=== PATIENT | female | born 1985 | race Hispanic/Latino ===

== ENCOUNTER 2016-06-08 16:27 | Emergency (ER) | payer OTHER ==
[~2016-06-08] VITALS: Ht 157.5 cm; Wt 97.5 kg
[~2016-06-08 16:27] MED LIST: HYDROCODONE/ACE1 TA1 PO; PREDNICOT20 MG PO; SLOW FE45 MG PO
--- NOTE | 2016-06-08 19:28 | ED INFLUENZA/URI COMPLAINT ---
History of Present Illness General Chief Complaint: Upper Respiratory Sx/Fever Stated Complaint: URI Source: patient Exam Limitations: no limitations Vital Signs & Intake/Output Vital Signs & Intake/Output Vital Signs Date Time Temp Pulse Resp B/P Pulse O2 O2 Flow FiO2 Ox Delivery Rate 06/08 2114 98.6 95 14 124/79 100 Room Air 06/087 99 Room Air 06/084 98.5 111 20 117/69 100 Room Air 06/08 1638 98.8 120 16 124/83 95 Room Air Allergies Coded Allergies: MDX - Fish Oil (FISH OIL) (Mild, RASH 07/23/13) Reconcile Medications Benzonatate (Tessalon Perle) 100 MG CAPSULE 1 CAP PO TID PRN cough HYDROCODONE/ACETAMINOPHEN (Hydrocodon-Acetaminophen 5-325) 1 TAB TAB 1-2 TAB PO Q6P PRN PAIN Prednisone (Prednicot) 20 MG TAB 2 TAB PO DAILY ALLERGIC REACTION Triage Note: PT STATES SHE HAS BEEN FEELING SICK SINCE MONDAY. PT HAS HAD BODY ACHES COUGHING AND SNEEZING AND LOW GRADE FEVER. Triage Nurses Notes Reviewed? yes Onset: Gradual Duration: day(s): (5) Timing: remote history Severity: moderate Severity Numbers: 6 Prior Episodes/Possible Cause: occassional episodes No Modifying Factors: none : No Patient currently breastfeeds: No HPI: Patient is a 31-year-old female presenting to the emergency Department chief complaint of malais, body aches, productive cough of yellow sputum. Tactile fevers at home. Her kids were sick with similar symptoms. No one Diagnosed with the flu. She did get her flu vaccine this year. Denies any nausea or vomiting or abdominal pain. No chest pain palpitations or shortness of breath. No recent travel. Denies taking anything [id number] besides Tylenol to help with symptoms. (DOROTHEA GODWIN,CHAPARRITA) Past History Travel History Traveled to [place] past 21 day No Medical History Any Pertinent Medical History? see below for history Neurological: NONE EENT: NONE Cardiovascular: NONE Respiratory: NONE Gastrointestinal: NONE Hepatic: NONE Renal: NONE Musculoskeletal: NONE Psychiatric: NONE Endocrine: NONE Blood Disorders: NONE Cancer(s): NONE Tetanus Vaccine: 08/03/12 Surgical History Surgical History: non-contributory Psychosocial History What is your primary language Greenlandic Tobacco Use: Never used ETOH Use: denies use Illicit Drug Use: denies illicit drug use Family History Hx Contributory? No (CHAPARRITA LEIVA) Review of Systems Review of Systems Constitutional: Reports: fever, malaise. Comments Review of systems: See HPI, All other systems negative. Constitutional, no weight loss HEENT: No visual changes Cardiovascular: No chest pain ,palpitation , orthopnea or ankle swelling Skin, no jaundice no rashes Respiratory: No dyspnea or hemoptysis GI: No nausea no vomiting : No dysuria No hematuria Muscle skeletal: no back pain, no neck pain, Neurologic: No numbness no confusion Psych: No stress anxiety or depression,. Heme/endocrine: No bruising no bleeding no polyuria or polydipsia Immunology: No splenectomy or history of AIDS (CHAPARRITA LEIVA) Physical Exam Physical Exam General Appearance: well developed/nourished, no apparent distress, alert, awake , comfortable Ears, Nose, Throat: nasal congestion Comments: Well-developed well-nourished person in no acute distress HEENT: . Pupils equally round and reactive to light and accommodation. Nose is atraumatic. External auditory canal and Tympanic membranes clear. Pharynx normal. No swelling or edema. Neck: Supple, no lymphadenopathy, normal range of motion without pain or tenderness Back: Nontender, no CVA tenderness. Full range of motion Cardiovascular: slightly tachy rate and regular rhythms no murmurs rubs or gallops, normal JVP Respiratory: Chest nontender. No respiratory distress.breath sounds clear to auscultation bilaterally. dry reactive cough. Neuro: Alert oriented x3 Skin: No appreciable rash on exposed skin, skin is warm and dry. Psych: Mood and affect is normal, memory and judgment is normal. Core Measures Severe Sepsis Present: No Septic Shock Present: No (CHAPARRITA LEIVA) Progress Differential Diagnosis: influenza, pneumonia, pharyngitis, sinusitis Plan of Care: Orders Procedure Date/time Status EKG 06/08 2022 Active RAPID VIRAL INFLUENZA A 06/08 1926 Complete Microbiology 06/08 2006 NASOPHARYN: Influenza Virus A & B Rapid Smear - COMP Initial ED EKG: sinus tachycardia at 106 bpm Comments: EKG is sinus tachycardia. 106 bpm. Patient feeling better after Decadron. Patient will be treated symptomatically for viral syndrome. Educated on increasing fluids. Patient nontoxic. (CHAPARRITA LEIVA) Departure Departure Time of Disposition: 2031 Disposition: HOME OR SELF CARE Condition: Stable Clinical Impression Primary Impression: Viral syndrome Referrals: PATIENT HAS NO PRIMARY CARE DR (PCP/Family) Additional Instructions: Follow-up with your primary care physician call to make an appointment. Increase fluids. Take cough medication as prescribed. Alternate Motrin and Tylenol [id number] to help with aches and pains. Return for worsening symptoms or concerns. Departure Forms: Customer Survey General Discharge Information Prescriptions: Current Visit Scripts Benzonatate (Tessalon Perle) 1 CAP PO TID PRN cough #30 CAP (CHAPARRITA LEIVA) PA/CRAWLER TRACTOR OPERATOR Co-Sign Statement Statement: ED Attending supervision documentation- [] I saw and evaluated the patient. I have also reviewed all the pertinent lab results and diagnostic results. I agree with the findings and the plan of care as documented in the PA's/CRAWLER TRACTOR OPERATOR's documentation. [X] I have reviewed the ED Record and agree with the PA's/CRAWLER TRACTOR OPERATOR's documentation. [] Additions or exceptions (if any) to the PAs/CRAWLER TRACTOR OPERATOR's note and plan are summarized below: [] (RUDY JAY,LISA Zhang)
[2016-06-08] MEDS ORDERED: TESSALON PERLE100 M1 PO (20:33)
[2016-06-08 21:15] VITALS: BP 124/79
== END 2016-06-08 22:22 ==
LOC: ERH 16:27
DX: B34.9 Viral infection, unspecified (principal)
CPT/HCPCS: 87804; 87804-59; 93005; 93010

== ENCOUNTER 2016-08-15 18:37 | Emergency (ER) | payer OTHER ==
[~2016-08-15] VITALS: Ht 157.5 cm; Wt 97.5 kg
[~2016-08-15 18:37] MED LIST changes: +TESSALON PERLE100 M1 PO
--- NOTE | 2016-08-15 19:19 | RADIOLOGY REPORT ---
EXAMINATION: XR HAND, RIGHT CLINICAL INFORMATION: Pain. COMPARISON: None TECHNIQUE: AP, lateral, and oblique views of the right hand. FINDINGS: No acute fracture or dislocation is identified. Bony mineralization is normal. The joint spaces are maintained. The radiocarpal joint and carpal rows appear normal. No discrete soft tissue abnormality is identified. IMPRESSION: No acute radiographic abnormality of the right hand.
--- NOTE | 2016-08-15 19:26 | ED HAND/WRIST INJURY COMPLAINT ---
History of Present Illness General Chief Complaint: Hand or Wrist Injury Stated Complaint: RIGHT WRIST PAIN Source: patient Exam Limitations: no limitations Vital Signs & Intake/Output Vital Signs & Intake/Output Vital Signs Date Time Temp Pulse Resp B/P B/P Pulse O2 O2 Flow FiO2 Mean Ox Delivery Rate 08/15 2056 98.7 89 18 124/72 97 Room Air Room Air 08/15 1840 98.6 110 18 122/76 98 Room Air ED Intake and Output 08/16 0000 08/15 1200 Intake Total Output Total Balance Patient 215 lb Weight Weight Reported by Patient Measurement Method Allergies Coded Allergies: fish oil (RASH 08/15/16) Reconcile Medications No Known Home Medications Triage Note: 31 YO FEMALE TO TRIAGE C/[facility]. STATES SHE WAS TOLD SHE HAS A CYST IN HER WRIST. PT DENIES CHANCE OF . Triage Nurses Notes Reviewed? yes : No Patient currently breastfeeds: No HPI: Ms. Bansal is a 31 yo f w/ no significant PMH presenting to ED for R wrist pain. Pt states she's had this pain on and off for over two years. Pain is burning sensation. Pain is located on dorsum of R hand above digits 2-4. At times, pain is also present on dorsum of R wrist. Pt endorses decreased ROM of fingers w/ stiffness, and inability to make a tight fist secondary to pain. Pt denies fever or chills. No trauma to the area. Pt also endorses subjective swelling on dorsum of distal L forearm. (CHELSEY ECSPEDES MD) Past History Travel History Traveled to [place] past 21 day No Medical History Any Pertinent Medical History? see below for history Neurological: NONE EENT: NONE Cardiovascular: NONE Respiratory: NONE Gastrointestinal: NONE Hepatic: NONE Renal: NONE Musculoskeletal: R hand cyst Psychiatric: NONE Endocrine: NONE Blood Disorders: NONE Cancer(s): NONE CADDY PACKER/Reproductive: NONE Tetanus Vaccine: 08/03/12 Surgical History Surgical History: non-contributory Psychosocial History What is your primary language Belarusian Tobacco Use: Never used Family History Hx Contributory? No (CHELSEY CESPEDES MD) Review of Systems Review of Systems Constitutional: Reports: no symptoms. EENTM: Reports: no symptoms. Respiratory: Reports: no symptoms. Cardiovascular: Reports: no symptoms. GI: Reports: no symptoms. Genitourinary: Reports: no symptoms. Musculoskeletal: Reports: joint pain, joint swelling. Skin: Denies: rash. Neurological/Psychological: Reports: numbness, paresthesia. Hematologic/Endocrine: Reports: no symptoms. Immunologic/Allergic: Reports: no symptoms. All Other Systems: Reviewed and Negative (CHELSEY CESPEDES MD) Physical Exam Physical Exam General Appearance: well developed/nourished, no apparent distress, alert, awake , comfortable Head: atraumatic, normal appearance Eyes: Bilateral: normal appearance, PERRL, EOMI. Ears, Nose, Throat: normal pharynx, normal ENT inspection, hearing grossly normal Neck: normal inspection, supple, full range of motion Cardiovascular/Respiratory: normal breath sounds, normal peripheral pulses, regular rate/rhythm, no respiratory distress Gastrointestinal: soft, nontender abdomen Back: normal inspection, normal range of motion Shoulder Left: normal range of motion, normal inspection Shoulder Right: normal range of motion, normal inspection Elbow Left: normal range of motion, normal inspection Elbow Right: normal range of motion, normal inspection Forearm Left: normal range of motion, normal inspection Forearm Right: normal range of motion, normal inspection Wrist Left: normal range of motion, normal inspection Wrist Right: normal range of motion, normal inspection Hand Left: normal inspection, normal range of motion Hand Right: normal inspection, pain w/ Phalen Test Neurologic/Tendon: normal sensation, normal motor functions, normal tendon functions, no evidence tendon injury, no pulse deficit Skin: intact, normal color, warm/dry Lymphatic: no anterior cervical eliza (CHELSEY CESPEDES MD) Progress Differential Diagnosis: cellulitis, contusion, compartment syndrome, fracture, sprain, tenosynovitis, carpel tunnel syndrome Plan of Care: Current Medications Sig/Christian Start time Last Medication Dose Stop Time Status Admin Lidocaine 1 PAT ONCE ONE 08/16 1999 UNVr (Lidoderm) 08/15 2000 Patient is generally well-appearing. She endorses significant pain over dorsum of the wrist as well as swelling but no swelling is noted on exam. Pain has been ongoing intermittently for several years. No current PCP as she was intermittently homeless and lost her have health insurance. 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 Would like assistance finding a PCP. Registrar was informed and patient was given information for the [facility]. Patient also given follow-up information for 2 different orthopedic physicians to follow for her wrist pain. No evidence of erythema or rashes to suggest cellulitis. No swelling noted to indicate possibility of compartment syndrome. No trauma to suggest fracture or sprain. No obvious signs of bruising. Patient did have a positive Ringgold's test. Possible carpal tunnel. However she does endorse worsening pain symptoms with increased stress. Possible psychosocial stressors manifested as physical pain. Patient has full range of motion of her fingers and digits with some decrease in her ability to make a tight fist. No change in sensation. Plan to give a Lidoderm patch to decrease the pain locally and place the patient in a splint with follow-up with orthopedics. Patient is comfortable with the plan and will be discharged home. Patient given return precautions. (CHELSEY CESPEDES MD) Departure Departure Time of Disposition: 2045 Disposition: HOME OR SELF CARE Condition: Stable Clinical Impression Primary Impression: Wrist pain, right Secondary Impressions: Hand pain, right Referrals: MITCH AGUDELO MD PATIENT HAS NO PRIMARY CARE DR (PCP/Family) ALICIA JACKSON MD Additional Instructions: Please call either Dr. Agudelo's group or Dr. Jackson to start care with an orthopedic doctor. You will recieve a call from someone in the [facility] primary care doctor to follow up and establish care. If you develop worsening pain, decrease range of motion or any other concerning symptoms, please return to the ED for evaluation. Departure Forms: Customer Survey General Discharge Information Prescriptions: Current Visit Scripts No Known Home Medications (CHELSEY CESPEDES MD) PA/NEWS PRODUCTION ASSISTANT Co-Sign Statement Statement: ED Attending supervision documentation- [] I saw and evaluated the patient. I have also reviewed all the pertinent lab results and diagnostic results. I agree with the findings and the plan of care as documented in the PA's/NEWS PRODUCTION ASSISTANT's documentation. [X] I have reviewed the ED Record and agree with the PA's/NEWS PRODUCTION ASSISTANT's documentation. [] Additions or exceptions (if any) to the PAs/NEWS PRODUCTION ASSISTANT's note and plan are summarized below: [] (RUDY JAY,LISA Zhang)
[2016-08-15 20:57] VITALS: BP 124/72
== END 2016-08-15 20:57 ==
LOC: ERH 18:37
DX: M25.531 Pain in right wrist (principal); M79.641 Pain in right hand
CPT/HCPCS: 73130-RT